=== PATIENT | female | born 1995 | race Caucasian/White ===

== ENCOUNTER 2016-09-16 19:58 | Emergency (ER) | payer OTHER ==
[~2016-09-16] VITALS: Ht 147.3 cm; Wt 59.0 kg
[2016-09-16 20:18] VITALS: BP 127/72
--- NOTE | 2016-09-16 20:23 | NUR ---
AMBULATED TO ER BED 3
--- NOTE | 2016-09-16 20:25 | NUR ---
PATIENT PRESENTS TO ED WITH PELVIC PAIN AND VAGINAL BLEEDING . PT STATES BEEN HAPPENING FOR 1 DAY . DENIES N/V/D; SKIN IS PINK/WARM/DRY; AAOX4 WITH EVEN AND STEADY GAIT; LUNGS CLEAR BL; HR EVEN AND REGULAR; PT DENIES ANY FEVER, CP, SOB, OR COUGH AT THIS TIME; PATIENT STATES PAIN OF 6/10 AT THIS TIME; VSS; PATIENT POSITIONED FOR COMFORT; HOB ELEVATED; BEDRAILS UP X2; BED DOWN. ER MD MADE AWARE OF PT STATUS.
[2016-09-16] MEDS ORDERED: KETOROLAC 30 MG/ML VIAL IM ONE (20:40)
[2016-09-16] MEDS ORDERED: ACETAMINOPHEN/CODEINE 300/30MG 1 TAB PO ONE (20:40)
[2016-09-16] MEDS ORDERED: DICYCLOMINE 20 MG/2 ML VIAL IM ONE (22:20)
[2016-09-16] MEDS ORDERED: HYDROcodone/APAP 5/325 MG 1 TAB TAB PO ONE (22:35)
[2016-09-17 00:26] VITALS: BP 128/87
--- NOTE | 2016-09-17 00:26 | NUR ---
Patient discharged with v/s stable. Written and verbal after care instructions given and explained. Patient alert, oriented and verbalized understanding of instructions. Ambulatory with steady gait. All questions addressed prior to discharge. ID band removed. Patient advised to follow up with PMD. Rx of NAPROSYN 500MG TABLET, NORCO 5MG-325MG TABLET given. Patient educated on indication of medication including possible reaction and side effects. Opportunity to ask questions provided and answered.
== END 2016-09-17 00:26 | disposition home or self-care (01) ==
LOC: MED 20:00
DX: N83.202 Unspecified ovarian cyst, left side (principal)
CPT/HCPCS: 76830; 81001; 81025; 93975; 96372; 99285; J0500; J1885

== ENCOUNTER 2016-09-18 17:54 | Emergency (ER) | payer OTHER ==
[~2016-09-18] VITALS: Ht 147.3 cm; Wt 59.0 kg
[2016-09-18 19:41] VITALS: BP 134/71
--- NOTE | 2016-09-18 22:09 | NUR ---
T PRESENT TO ER W/ C/O ABDOMINAL PAIN. SEEN HER IN ER LAST 2/5 GIVEN PRESCRIPTION OF NORCO AND NAPROSYN. PAIN WORST TODAY 05/21.
[2016-09-18 22:41] VITALS: BP 131/66
--- NOTE | 2016-09-18 22:43 | NUR ---
Patient discharged with v/s stable. Written and verbal after care instructions given and explained. Patient alert, oriented and verbalized understanding of instructions. Ambulatory with steady gait. All questions addressed prior to discharge. ID band removed. Patient advised to follow up with PMD. Rx of TRAMADOL HYDROCHLORIDE 50MG PO, ZOFRAN ODT 4MG PO given. Patient educated on indication of medication including possible reaction and side effects. Opportunity to ask questions provided and answered.
== END 2016-09-18 22:43 | disposition home or self-care (01) ==
LOC: MED 17:54
DX: N83.209 Unspecified ovarian cyst, unspecified side (principal)